=== PATIENT | female | born 1945 | race Caucasian/White ===

== ENCOUNTER 2021-02-25 13:56 | Outpatient (RCR) | payer MEDICARE, MEDICAID, SELFPAY ==
--- NOTE | 2021-02-25 15:05 | PTOPEVAL ---
Thank you for referring Julee Wade to [facility] The patient is scheduled to be seen for therapy? __2__x/week for 12 visits. Please review, sign, date and return this plan of care MARCY. I agree with and certify that the following plan of care is medically necessary. Referring Physician Date Admitting Provider: Attending Provider: JAMI ALCANTARA Referring Provider: *PT Outpatient Evaluation Start: 02/25/21 14:04 Freq: Status: Active Protocol: Document 02/25/21 14:04 DEMI (Rec: 02/25/21 14:32 DEMI [email or web address]) Therapy Assessment Status Assessment Status Assessment Status Evaluation Evaluation Information Problem Diagnosis frequent falls Onset 01/28/21 Subjective Information Pt. reports that she suffered Query Text:As Reported By Patient/ her last fall around the Family beginning of the month. She reports she fell after getting up to go to the bathroom and caught her foot in her pajama leg. She reports that she had another fall about 1 month prior to her last fall. She states that her left tends to drag when she walks. She reports that her goal for therapy is to improve her walking and decrease her falls . Prior Level of Function Activity Level (Last 3 Months) Occupation retired Hand Dominance Right Activity of Daily Living Ability Independent Indoor/Home Mobility Independent Community Mobility Independent Stairs Ability Independent Functional Cognition (Planning, Shopping Independent , Taking Medications) Cooking Yes Cleaning Yes Laundry Yes Shopping Yes Driving Yes Pain Assessment Timing of Pain Assessment Timing of Pain Assessment Pre-Treatment Pain Scale Pain Scale Used Numeric (1 - 10) Self Report Pain Assessment Left Leg(s) Reported Pain Level 5 Pain Description Aching Pain Frequency Chronic,Continuous Pain Score Pain Score 5: Self Report Interventions Used Interventions Used By Clinicians Activity or ADL's,Exercise Lower Extremity Muscle Strength Testing General Lower Extremity Strength Gross Lower Extremity Strength -right hip flexion 5/5 -left hip flexion 4-/5
--- NOTE | 2021-02-27 13:22 | PCPTNOTE ---
patient called and cancelled appt for today due to not feeling well. SHIRAZ
== END 2021-03-07 09:46 | disposition home or self-care (01) ==
LOC: CHSPT 13:56
DX: R29.6 Repeated falls (principal)
CPT/HCPCS: 97110; 97112; 97161

== ENCOUNTER 2021-06-11 12:55 | Outpatient (CLI) | payer MEDICARE, MEDICAID, SELFPAY ==
--- NOTE | ~2021-06-11 | MM_ITS ---
EXAMINATION: MM screening elie BI w emily HISTORY: Screening mammogram TECHNIQUE: Craniocaudal and mediolateral oblique 3-D tomosynthesis images were obtained and synthetic 2-D images were generated. CAD analysis was submitted and interpreted. COMPARISON: 08/24/2018 bilateral digital screening mammogram BREAST PARENCHYMAL COMPOSITION: The breasts are almost entirely fatty. FINDINGS: There are are segmental linear and punctate microcalcifications in the inner mid to upper r ight breast. Magnification views are recommended. Otherwise there is no evidence of suspicious mass, calcification, or architectural distortion to sug gest malignancy in either breast. There has been no other suspicious interval change. IMPRESSION: 1. Segmental right breast microcalcifications 2. Diagnostic right mammogram with magnification views is recommended BI-RADS Category 0: Incomplete: Needs additional imaging evaluation. Reviewed, dictated and finalized at location B.
== END 2021-06-11 12:56 | disposition home or self-care (01) ==
LOC: CHSIMG 13:00
PROVIDERS: PCP Family Medicine; Visit Provider Family Medicine
DX: Z12.31 Encounter for screening mammogram for malignant neoplasm of breast (principal)
CPT/HCPCS: 77063; 77067

== ENCOUNTER 2021-07-02 08:51 | Outpatient (CLI) | payer MEDICARE, MEDICAID, SELFPAY ==
--- NOTE | ~2021-07-02 | MM_ITS ---
CORRECTED REPORT ORDER CHANGE 07/02/21 [facility] EXAMINATION: MM diagnostic elie RT HISTORY: Follow-up right breast calcifications TECHNIQUE: Additional 3-D tomosynthesis images of the right breast were performed and synthetic 2-D images were generated. CAD analysis was submitted and interpreted. COMPARISON: Comparison to multiple prior studies sequentially, with oldest reviewed study dated 08/24/2018. BREAST PARENCHYMAL COMPOSITION: Breast composed of scattered areas of fibroglandular density. FINDINGS: There are linear calcifications in the upper inner quadrant of the right breast, most likely benign segmental calcifications. These are slightly more prominent than on 2018 study, although they were largely present. No suspicious masses or architectural distortion. IMPRESSION: 1. Probable benign right breast calcifications. 2. Recommend 6 month follow-up diagnostic right mammogram BI-RADS category 3, probably benign findings. Reviewed, dictated and finalized at location A. MTDD
== END 2021-07-02 08:52 | disposition home or self-care (01) ==
LOC: CHSIMG 08:55
PROVIDERS: PCP Family Medicine; Visit Provider Family Medicine
DX: R92.8 Other abnormal and inconclusive findings on diagnostic imaging of breast (principal)
CPT/HCPCS: 77061; 77065; G0279

== ENCOUNTER 2022-03-07 16:59 | Emergency (ER) | payer MEDICARE, MEDICAID, SELFPAY ==
[2022-03-07 17:05] VITALS: BP 190/116; PULSE 68; RESP 20; TEMP 36.4; O2SAT 98
--- NOTE | 2022-03-07 17:32 | ED.GENADULT ---
HPI - General Adult General Chief complaint: Urogenital-Female Stated complaint: sore in nose, UTI Source: patient Mode of arrival: ambulatory Limitations: no limitations History of Present Illness HPI narrative: Julee is a 76F with a PMH of HTN, HLD and a mood disorder that presented with 6 days of left nostril pain and tenderness. She had swelling then ripped a scab off with drainage multiple times. She denies fevers, chills, N/V, CP, SOB, and headache. She is allergic to penicillin. She has also had one day of dysuria but no back pain. Related Data Home Medications Medication Instructions Recorded Confirmed hydrochlorothiazide 12.5 mg PO DAILY 03/07/22 03/07/22 lisinopril 30 mg PO DAILY 03/07/22 03/07/22 metoprolol succinate 50 mg PO DAILY 03/07/22 03/07/22 simvastatin 20 mg PO DAILY 03/07/22 03/07/22 topiramate 50 mg PO BID 03/07/22 03/07/22 venlafaxine 37.5 mg PO DAILY 03/07/22 03/07/22 Allergies Allergy/AdvReac Type Severity Reaction Status Date / Time Penicillins Allergy Unknown Verified 03/07/22 17:18 Review of Systems Constitutional: Constitutional: Reports no additional constitutional complaints Eyes: Eyes: Reports no additional eye complaints ENT: Reports as per HPI Cardiovascular: Cardiovascular: Reports no additional cardiovascular complaints Respiratory: Respiratory: Reports no additional respiratory complaints Gastrointestinal: Gastrointestinal: Reports no additional gastrointestinal complaints Genitourinary: Genitourinary: Reports no additional female genitourinary complaints Musculoskeletal: Musculoskeletal: Reports no additional musculoskeletal complaints Integumentary/Breasts: Skin/Breast: Reports system reviewed and no additional complaints, except as docu Neurologic: Reports system reviewed and no additional complaints, except as documented Psychiatric: Psychiatric: Reports no additional psychiatric complaints Endocrine: Endocrine: Reports no additional endocrine complaints Hematologic/Lymphatic: Hematologic/Lymphatic: Reports no additional hematologic/lymphatic complaints Allergic/Immunologic: Allergic/Immunologic: Reports no additional allergic/immunologic complaints Exam Const: General: no acute distress and alert Orientation/consciousness: patient oriented x3 Limitations: No altered mental status HENMT: Head: normal to inspection Other: normocephalic, atraumatic. left nostril had a small 0.5cm open erythematous very TTP abscess Eyes: Conjunctivae: conjunctivae normal Pupils: Equal, round and reactive pupils present Neck: Neck: normal visual inspection Chest: Chest palpation & inspection: normal inspection of the chest Resp: Effort & Inspection: normal respiratory effort Auscultation: clear to auscultation bilaterally Cardio: Rate: regular rate Rhythm: regular rhythm GI: Inspection: non-distended GI Palp: Yes Soft to palpation and No Tenderness to palpation present (GI) Back/Spine/Pelvis: Back: no CVA tenderness Skin: General skin exam: normal color Rashes: no rashes Neuro: General: patient oriented x3, moves all extremities and no meningeal signs Extrem: General: normal to inspection Psych: Appearance: grossly normal and well kempt Mental Status: mental status grossly normal Course Course Emergency Course: ordered UA UA unremarkable. She was given a dose of clindamycin for the nasal abscess. I&D not performed as it was already opened and very TTP Vital Signs Vital signs: Vital Signs Temperature 97.6 F 03/07/22 17:05 Pulse Rate 68 03/07/22 17:05 Respiratory Rate 20 03/07/22 17:05 Blood Pressure 190/116 H 03/07/22 17:05 Pulse Oximetry 98 03/07/22 17:05 Temperature 97.6 F 03/07/22 17:05 Pulse Rate 70 03/07/22 17:34 Respiratory Rate 18 03/07/22 17:34 Blood Pressure 157/96 H 03/07/22 17:34 Pulse Oximetry 97 03/07/22 17:34 Medical Decision Making Vital Signs Vital Signs: Vital Signs Temperature 97.6 F
[2022-03-07 17:34] VITALS: BP 157/96; PULSE 70; RESP 18; O2SAT 97
[2022-03-07 17:46] LABS: Appearance Urine Clear (Clear); Bilirubin Urine Negative (Negative); Color Urine Light Yellow (Yellow); Glucose Urine UA Negative (Negative); Ketones Urine Negative (Negative); Leukocyte Esterase Ur Negative (Negative); Nitrate Urine Negative (Negative); Protein Urine Negative (Negative); Specific Grav Ur <= 1.005 (1.010-1.020); Urobilinogen Urine 0.2 mg/dL (0.2-1.0)
[2022-03-07 17:49] LABS: Add Urine Microscopic? YES; Blood Urine Trace-Intact (Negative)
[2022-03-07 17:50] LABS: Bacteria Urine Trace /hpf; RBC Urine 0-2 /hpf (0-2); Squamous Epithelial Cell Urine Few /hpf (Few); WBC Urine 0-3 /hpf (0-3)
[2022-03-07] MEDS: CLINDAMYCIN HCL 150 MG CAP 450 MG PO (17:54)
[2022-03-07 18:04] VITALS: BP 158/97; PULSE 68; RESP 18; TEMP 36.6; O2SAT 99
== END 2022-03-07 18:05 | disposition home or self-care (01) ==
PROVIDERS: Emergency Provider Family Medicine; PCP Family Medicine
DX: J34.0 Abscess, furuncle and carbuncle of nose (principal); E78.5 Hyperlipidemia, unspecified; I10 Essential (primary) hypertension
CPT/HCPCS: 81001; 99283; A9270